=== PATIENT | female | born 1965 | race Hispanic/Latino ===

== ENCOUNTER 2020-04-28 11:34 | Inpatient (IN) | payer MEDICAID ==
--- NOTE | 2020-04-28 11:54 | Emergency Department Report ---
ED Fall HPI - General Stated Complaint: REPEATED FALLS,WEAKNESS Time Seen by Provider: 04/28/20 11:46 Source: EMS - History of Present Illness Initial Comments: Patient is 54 years old female with history of bipolar disorder and asthma. Patient brought to the emergency room via EMS from [facility] for evaluation of frequent fall. EMS stated that patient fell 3 times this morning. Patient stated that she felt dizzy when this happened. Patient is a very poor historian however she denied any shortness of breath or chest pain. Patient is complaining of left hip pain. MD Complaint: fall Fall From: standing - Related Data Allergies Allergy/AdvReac Type Severity Reaction Status Date / Time amoxicillin Allergy Unknown Verified 04/28/20 12:30 pseudoephedrine Allergy Unknown Verified 04/28/20 12:30 [From [facility]] ED Review of Systems ROS: Stated complaint: REPEATED FALLS,WEAKNESS Other details as noted in HPI Comment: All other systems reviewed and negative Constitutional: denies: chills, fever Respiratory: denies: cough, shortness of breath, SOB with exertion, wheezing Cardiovascular: denies: chest pain, palpitations Gastrointestinal: denies: abdominal pain, nausea, vomiting Musculoskeletal: denies: back pain Neurological: denies: headache, weakness, numbness, paresthesias, confusion, abnormal gait Psychiatric: anxiety. denies: depression, auditory hallucinations, visual hallucinations, homicidal thoughts, suicidal thoughts ED Physical Exam - General General appearance: alert, in no apparent distress - Head Head exam: Present: atraumatic, normocephalic, normal inspection - Eye Eye exam: Present: normal appearance - ENT ENT exam: Present: normal exam, normal orophraynx, mucous membranes moist - Neck Neck exam: Present: normal inspection, full ROM. Absent: tenderness, meningismus, lymphadenopathy, thyromegaly - Respiratory Respiratory exam: Present: normal lung sounds bilaterally - Cardiovascular Cardiovascular Exam: Present: regular rate, normal rhythm, normal heart sounds - GI/Abdominal GI/Abdominal exam: Present: soft, normal bowel sounds. Absent: distended, tenderness, guarding, rebound, rigid, organomegaly, mass, bruit, pulsatile mass, hernia - Extremities Exam Extremities exam: Present: normal inspection, full ROM, normal capillary refill. Absent: pedal edema, calf tenderness - Back Exam Back exam: Present: normal inspection, full ROM. Absent: CVA tenderness (R), CVA tenderness (L), muscle spasm, paraspinal tenderness, vertebral tenderness - Neurological Exam Neurological exam: Present: alert, oriented X3, CN II-XII intact, reflexes normal. Absent: motor sensory deficit - Psychiatric Psychiatric exam: Present: normal mood. Absent: homicidal ideation, suicidal ideation - Skin Skin exam: Present: warm, intact, normal color ED Course Vital Signs 04/28/20 04/28/20 11:49 14:41 Temperature 97.7 F Pulse Rate 87 82 Respiratory 16 13 Rate Blood Pressure 125/71 128/84 [Left] O2 Sat by Pulse 99 100 Oximetry ED Medical Decision Making - Lab Data Result diagrams: 04/28/20 12:06 04/28/20 12:06 - EKG Data -: EKG Interpreted by Me - EKG Data 04/28/20 13:46 Left bundle branch block. - Medical Decision Making Patient is 54 years old female with history of bipolar disorder and asthma. Patient brought to the emergency room via EMS from [facility] for evaluation of frequent fall. EMS stated that patient fell 3 times this morning. Patient stated that she felt dizzy when this happened. Patient is a very poor historian however she denied any shortness of breath or chest pain. Patient is complaining of left hip pain. Patient EKG showed a left bundle branch block. No previous records to see if this is new or old. CT brain is negative for acute finding. Labs reviewed and is unremarkable including a negative troponin. Given patient current symptoms of dizziness and frequent fall and the finding of left bundle branch block I believe patient need to be admitted to the hospital for observation and further management. I discussed the patient with Dr. Petr Hdez who is covering for Dr. Plaza and he advised to both a admitting order under Dr. Plaza name. Critical care attestation.: If time is entered above; I have spent that time in minutes in the direct care of this critically ill patient, excluding procedure time. ED Disposition Clinical Impression: Dizziness, Left bundle branch block, Frequent falls Disposition: OP ADMIT IP TO THIS HOSP Is pt being admited?: Yes Condition: Stable
[2020-04-28 12:25] LABS: Basophils % (Auto) 0.6 % (0.0-1.8); Eosinophils # (Auto) 0.3 K/mm3 (0.0-0.4); Eosinophils % (Auto) 3.5 % (0.0-4.3); Hematocrit 39.1 % (30.3-42.9); Hemoglobin 12.6 gm/dl (10.1-14.3); Lymphocytes # (Auto) 1.5 K/mm3 (1.2-5.4); Lymphocytes % (Auto) 17.9 % (13.4-35.0); Mean Corpuscular HGB Conc 32 % (30-34); Mean Corpuscular Volume 92 fl (79-97); Monocytes # (Auto) 0.4 K/mm3 (0.0-0.8); Monocytes % (Auto) 4.3 % (0.0-7.3); Platelet Count 462 K/mm3 (140-440); Red Blood Count 4.24 M/mm3 (3.65-5.03); Red Cell Distribution Width 14.5 % (13.2-15.2)
[2020-04-28 12:43] LABS: Alanine Aminotransferase 9 units/L (7-56); Albumin 3.7 g/dL (3.9-5); BUN/Creatinine Ratio 13; Blood Urea Nitrogen 10 mg/dL (7-17); Calcium 8.1 mg/dL (8.4-10.2); Hemolysis Index 7
[2020-04-28] MEDS ORDERED: ASPIRIN 81 MG TAB CHEW PO ONE (13:43)
[2020-04-28 13:47] LABS: Bilirubin,Urine NEG (Negative); Blood,Urine SM (Negative); Color,Urine Straw (Yellow); Protein,Urine <15 mg/dL mg/dL (Negative); Urobilinogen,Urine < 2.0 mg/dL (<2.0)
[2020-04-28 14:19] LABS: INR 1.08 (0.87-1.13)
[2020-04-28 14:22] LABS: Partial Thromboplastin Time 32.1 Sec. (24.2-36.6)
[2020-04-28] MEDS ORDERED: HYDROXYZINE HCL 25 MG PO PRN (20:54)
[2020-04-28] MEDS ORDERED: hydrOXYzine HCL 25 MG TAB PO PRN (21:00)
[2020-04-28] MEDS: BUDESONIDE 0.5 MG/2 ML NEBU IH SCH (21:11)
[2020-04-28] MEDS: ARFORMOTEROL 15 MCG/2 ML NEBU IH SCH (21:11)
[2020-04-28] MEDS ORDERED: TOPIRAMATE 100 MG PO SCH (22:00)
[2020-04-28] MEDS ORDERED: SYMBICORT IH SCH (22:00)
[2020-04-28] MEDS ORDERED: NORTRIPTYLINE 25 MG CAP PO SCH (22:00)
[2020-04-28] MEDS: TOPIRAMATE TAB 100 MG TAB PO SCH (22:13)
[2020-04-28] MEDS ORDERED: ACETAMINOPHEN 325 MG TAB PO PRN (22:16)
[2020-04-29] MEDS ORDERED: REGADENOSON 0.4 MG/5 ML INJ IV ONE ×2 (07:49→07:55)
[2020-04-29] MEDS ORDERED: PARoxetine 20 MG TAB PO SCH (10:00)
[2020-04-29] MEDS ORDERED: NON-FORMULARY EACH (Paroxetine 20 MG) PO SCH (10:00)
[2020-04-29] MEDS: TOPIRAMATE TAB 100 MG TAB PO SCH (15:42)
[2020-04-29 16:11] VITALS: BP 112/55
[2020-04-29] MEDS: ARFORMOTEROL 15 MCG/2 ML NEBU IH SCH (19:28)
[2020-04-29] MEDS: BUDESONIDE 0.5 MG/2 ML NEBU IH SCH (19:28)
--- NOTE | 2020-04-30 13:09 | Treadmill Report ---
NUCLEAR PERFUSION SCAN REFERRING PHYSICIAN: Hospitalist service. PROTOCOL: The patient was brought to the stress lab in a postoperative state, given 10 mCi of technetium 99m at rest. The patient underwent rest imaging. The patient underwent Lexiscan stress test per standard protocol. At peak stress, the patient was given 26 mCi of technetium 99m. Shortly thereafter, the patient underwent stress imaging. Raw imaging reveals mild GI artifact, no motion artifact. SPECT images examined carefully in horizontal long axis, vertical long axis, short axis views. There is normal homogenous uptake of radioisotope in all reported segments. No evidence of significant fixed or reversible perfusion defects suggestive of prior infarction or active ischemia. Gated wall motion reveals normal systolic thickening, calculated ejection fraction of 68%. No TID. CONCLUSIONS: 1. Normal myocardial perfusion scan without evidence of active ischemia or prior infarction. 2. Normal left ventricular systolic performance without evidence of transient ischemic dilatation or stress-induced segmental wall motion abnormalities. JOB# [id number] JOHNATHAN/BASSAM
== END 2020-04-29 20:09 | disposition other institution (70) | DRG 641 ==
LOC: ED 11:34 → 4A 15:09
PROVIDERS: ADMIT Internal Medicine; ATTEND Internal Medicine
DX: E86.0 Dehydration (principal); I44.7 Left bundle-branch block, unspecified; E44.1 Mild protein-calorie malnutrition; R55 Syncope and collapse; F41.9 Anxiety disorder, unspecified; J44.9 Chronic obstructive pulmonary disease, unspecified; W18.39XA Other fall on same level, initial encounter; Z68.31 Body mass index [BMI] 31.0-31.9, adult; Z88.1 Allergy status to other antibiotic agents; Z88.8 Allergy status to other drugs, medicaments and biological substances; Y92.238 Other place in hospital as the place of occurrence of the external cause; Y93.89 Activity, other specified; Y99.8 Other external cause status
CPT/HCPCS: 36415; 70450; 71045; 78452; 80053; 81001; 84484; 85025; 85610; 85730; 87641; 93005; 93017; 93306; 93880; 94640; G0378; A9502; J2785